=== PATIENT | female | born 2000 | race African-American/Black ===

== ENCOUNTER 2025-09-18 06:51 | Inpatient (IN) ==
[2025-09-18] MEDS: D5 1/2 NS 1,000 ML 1,000 ML IV SCH (06:55)
[2025-09-18] MEDS ORDERED: REGLAN INJ 10 MG VIAL IVP PRN (06:59)
[2025-09-18] MEDS ORDERED: PITOCIN ONE (07:00)
--- NOTE | 2025-09-18 07:36 | DR.OB ---
OB QUICK NOTE Assessment/Plan (1) Encounter for induction of labor: Assessment/Plan: L&D 09/18/25 at 7:30am S-No complaint. O-Afebrile,VSS ESR=[id number] with good LTV, +accel, no decel. CTX=none CVX=1cm/50%/-1/VTX AROM with clear fluid. IUPC placed. FSE not able to be successfully placed. A-IUP at 39 0/7 weeks for induction Scoliosis with back pain P-Begin pitocin induction F/U labs Anticipate
[2025-09-18] MEDS: OXYTOCIN 20 UNIT/1,000 ML-NS 20 UNIT/1,000 ML PLAST..BAG IV PRN (07:45)
[2025-09-18] MEDS: NUBAIN INJ 10 MG AMP IVP PRN (09:58)
[2025-09-18] MEDS: NUBAIN INJ 10 MG AMP ONE (10:24)
[2025-09-18] MEDS: ZOFRAN INJ 4 MG VIAL IVP PRN (11:07)
[2025-09-18] MEDS: LR 1,000 ML IV 1,000 ML IV ONE (11:15)
[2025-09-18] MEDS: BETADINE SOLN ONE (15:15)
[2025-09-18] MEDS: PITOCIN IVP ONE (15:25)
[2025-09-18] MEDS: OXYTOCIN 20 UNIT/1,000 ML-NS 20 UNIT/1,000 ML PLAST..BAG IV SCH (15:35)
--- NOTE | 2025-09-18 15:53 | DR.OB ---
OB QUICK NOTE Assessment/Plan (1) Encounter for induction of labor: Assessment/Plan: Delivery Note [employer] 09/18/25 at 15:19 Patient complete and pushing. Mother and both stable. Head delivered over intact perineum. Nose and mouth were bulb suctioned upon delivery of the head. No nuchal cord. Body delivered over intact perineum. Cord was clamped x 2 and cut with infant being handed over for attendant. Cord segment was sent for gases. Placenta was delivered spontaneously/intact/three-vessel cord. No vaginal/perineal/cervical lesions were noted. Viable female infant was delivered by spontaneous vaginal delivery, vertex/OA, weight was 6 pounds 14 ounces with Apgars of 8 at 1 minute and 9 at 5 minutes that was stable and sent for nursery. Mother stable to recovery room. Estimated blood loss 300 cc.
[2025-09-18] MEDS ORDERED: MILK OF MAGNESIA PO PRN (16:02)
[2025-09-18] MEDS ORDERED: AMBIEN PO PRN (16:02)
[2025-09-18] MEDS ORDERED: MOTRIN TAB 800 MG PO PRN (16:02)
[2025-09-18] MEDS: ADACEL or BOOSTRIX TDaP VACCINE IM ONE (16:45)
[2025-09-18] MEDS: MOTRIN TAB 800 MG PO PRN (16:47)
[2025-09-18] MEDS: DERMOPLAST PAIN RELIEF SPRAY TOP PRN (16:47)
[2025-09-18] MEDS: ZOFRAN INJ 4 MG VIAL ONE (18:27)
[2025-09-18] MEDS: NAROPIN EPIDURAL 0.2% 100 ML ONE (18:27)
[2025-09-18] MEDS: FENTANYL VIAL INJ 100 mcg ONE (18:27)
[2025-09-18] MEDS: TYLENOL 325 MG TAB PO PRN (18:47)
[2025-09-19] MEDS: PRENATAL PLUS PO SCH (08:52)
[2025-09-19] MEDS: DEPO-PROVERA CONTRACEPTIVE INJ IM ONE (08:52)
[2025-09-19] MEDS: CLARITIN PO SCH (08:52)
[2025-09-19 09:07] VITALS: O2SAT 100
[2025-09-19 13:26] VITALS: BP 121/70; PULSE 90; TEMP 98.1
[2025-09-19 16:17] VITALS: RESP 20
== END 2025-09-19 16:10 | disposition home or self-care (01) | DRG 807 ==
LOC: LD 06:51 → MED/SURG 16:18
PROVIDERS: ADMIT Specialist; ATTEND Specialist
DX: Z3A.39 39 weeks gestation of pregnancy; Z01.812 Encounter for preprocedural laboratory examination; O99.353 Diseases of the nervous system complicating pregnancy, third trimester; Z37.0 Single live birth